=== PATIENT | female | born 1995 | race Caucasian/White ===

== ENCOUNTER → 2016-07-19 | Outpatient (CLI) | payer SELFPAY ==
[~2016-07-19] MED LIST: IRON325 M1 PO; MOTRIN-DPS800 MG PO; NEWMANS NIPPLE CREAM TP; PRENATAL VITAM1 EAC4 PO; TYLENOL EXTRA500 MG PO
== END | disposition home or self-care (01) ==
LOC: CARD 13:07
DX: R07.89 Other chest pain (principal); I49.9 Cardiac arrhythmia, unspecified

== ENCOUNTER → 2016-07-22 | Outpatient (CLI) | payer SELFPAY | END | disposition home or self-care (01) | LOC: CARD 12:29 | DX: R94.31 Abnormal electrocardiogram [ECG] [EKG] (principal); I49.1 Atrial premature depolarization; I49.3 Ventricular premature depolarization ==